=== PATIENT | female | born 1990 | race American Indian/Alaskan Native ===

== ENCOUNTER 2018-11-04 15:11 | Emergency (ER) | payer MEDICAID, OTHER ==
[2018-11-04 15:20] VITALS: BP 125/82
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
--- NOTE | 2018-11-04 16:05 | CR ---
Clinical history: 28-year-old female injured fall Interpretation: 3 views left knee (AP lateral and sunrise) unremarkable. Symmetric normal knee joint spacing. No sign of left knee joint effusion, fracture, dislocation or radiopaque loose joint body. Subtle chondromalacia patella.
--- NOTE | 2018-11-04 16:06 | CR ---
Clinical history: 28-year-old female injured right forearm (fall). Interpretation: 2 views confirm homogeneous normal bone density for age and gender. No sign of long bone fracture right radius or ulna. No dislocation of the right elbow or wrist joints. No foreign bodies.
--- NOTE | 2018-11-04 16:07 | CR ---
Clinical history: 28-year-old female injured right wrist (fall). Interpretation: Negative exam. Homogeneous normal bone density. No fracture or dislocation right wrist or hand. No foreign bodies.
== END 2018-11-04 16:18 | disposition home or self-care (01) ==
LOC: DL.ED 15:11
DX: S60.221A Contusion of right hand, initial encounter (principal); S80.02XA Contusion of left knee, initial encounter; W18.39XA Other fall on same level, initial encounter
CPT/HCPCS: 73090-RT; 73130-RT; 73562-LT; 99283-25

== ENCOUNTER 2021-06-23 11:10 | Emergency (ER) | payer MEDICAID ==
[2021-06-23 11:25] VITALS: BP 137/101; PULSE 82
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
[2021-06-23 12:12] LABS: ANION GAP 16.4 mEq/L (7-13); CHLORIDE,CL 102 mmol/L (98-107); SODIUM,NA 142 mmol/L (136-145)
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
== END 2021-06-23 13:30 | disposition home or self-care (01) ==
LOC: DL.ED 11:10
DX: S02.2XXA Fracture of nasal bones, initial encounter for closed fracture (principal); K04.7 Periapical abscess without sinus; E66.9 Obesity, unspecified; Z68.37 Body mass index [BMI] 37.0-37.9, adult; Z72.0 Tobacco use; W50.1XXA Accidental kick by another person, initial encounter
CPT/HCPCS: 36415; 70450; 70486; 80053; 84703; 85025; 99284-25

== ENCOUNTER 2022-01-25 13:12 | Emergency (ER) | payer MEDICAID ==
[2022-01-25 14:08] LABS: CORONAVIRUS COVID-19 NAA NEGATIVE (NEGATIVE); RESPIRATORY SYNCYTIAL VIR NAA NEGATIVE (NEGATIVE)
== END 2022-01-25 14:28 | disposition home or self-care (01) ==
LOC: DL.ED 13:12
DX: J20.8 Acute bronchitis due to other specified organisms (principal); H66.001 Acute suppurative otitis media without spontaneous rupture of ear drum, right ear; F17.210 Nicotine dependence, cigarettes, uncomplicated; E66.9 Obesity, unspecified; Z68.30 Body mass index [BMI] 30.0-30.9, adult; Z20.822 Contact with and (suspected) exposure to COVID-19
CPT/HCPCS: 0241U; 99282; 99283

== ENCOUNTER 2022-01-29 12:01 | Emergency (ER) | payer MEDICAID ==
[2022-01-29 12:28] VITALS: BP 126/79
[2022-01-29 13:13] LABS: ANION GAP 10.7 mEq/L (7-13); CHLORIDE,CL 104 mmol/L (98-107); SODIUM,NA 143 mmol/L (136-145)
[2022-01-29 13:15] LABS: ESTIMATED GFR 115 mL/min (>=60)
[2022-01-29 13:17] LABS: CORONAVIRUS COVID-19 NAA NEGATIVE (NEGATIVE); RESPIRATORY SYNCYTIAL VIR NAA NEGATIVE (NEGATIVE)
[2022-01-29] MEDS ORDERED: Benzonatate 100 MG Cap PO ONE (13:56)
[2022-01-29] MEDS ORDERED: Albuterol/Ipratropium 3.0-0.5 MG/3 ML Neb Soln NEB ONE (13:56)
[2022-01-29] MEDS ORDERED: Acetaminophen 500 MG Tab PO ONE (14:14)
[2022-01-29 14:24] VITALS: PULSE 80
== END 2022-01-29 15:19 | disposition home or self-care (01) ==
LOC: DL.ED 12:01
DX: J20.8 Acute bronchitis due to other specified organisms (principal); E66.9 Obesity, unspecified; Z68.32 Body mass index [BMI] 32.0-32.9, adult; Z20.822 Contact with and (suspected) exposure to COVID-19
CPT/HCPCS: 0241U; 36415; 71045; 80053; 83605; 83880; 84145; 84484; 85025; 85379; 86140; 93005; 93010; 99284; A9270-GY; J7620-GY

== ENCOUNTER 2022-02-02 17:21 | Emergency (ER) | payer MEDICAID ==
[2022-02-02 17:47] VITALS: BP 139/84; PULSE 122
[2022-02-02 18:59] LABS: CHLORIDE,CL 99 mmol/L (98-107); SODIUM,NA 136 mmol/L (136-145)
[2022-02-02 19:00] LABS: ESTIMATED GFR 118 mL/min (>=60)
[2022-02-02] MEDS ORDERED: cefTRIAXone 2 GM in Sodium Chloride 0.9% 100 ML IV ONE (22:54)
[2022-02-02] MEDS ORDERED: Azithromycin 500 MG in Sodium Chloride 0.9% 250 ML IV ONE (22:55)
== END 2022-02-02 19:05 | disposition left against medical advice (07) ==
LOC: DL.ED 17:21
DX: R10.31 Right lower quadrant pain (principal); R74.8 Abnormal levels of other serum enzymes; F17.210 Nicotine dependence, cigarettes, uncomplicated; E66.9 Obesity, unspecified; Z68.32 Body mass index [BMI] 32.0-32.9, adult; Z20.822 Contact with and (suspected) exposure to COVID-19
CPT/HCPCS: 36415; 80053; 80307; 81001; 81025; 82140; 82150; 82248; 83605; 83690; 83735; 84145; 85025; 86140; 99283; 99284; U0002

== ENCOUNTER 2022-12-03 05:59 | Emergency (ER) | payer MEDICAID ==
[2022-12-03] MEDS ORDERED: guaiFENesin/Dextromethorphan 100-10 MG/5 ML Soln 5 ML Cup PO ONE (06:08)
[2022-12-03] MEDS ORDERED: predniSONE 20 MG Tab PO ONE (06:08)
[2022-12-03] MEDS ORDERED: Albuterol/Ipratropium 3.0-0.5 MG/3 ML Neb Soln NEB ONE ×4 (06:08→08:05)
[2022-12-03 06:09] VITALS: BP 143/114
[2022-12-03] MEDS ORDERED: Benzonatate 100 MG Cap PO ONE (06:09)
[2022-12-03 06:55] VITALS: PULSE 112
[2022-12-03] MEDS ORDERED: Acetaminophen 500 MG Tab PO ONE (07:44)
== END 2022-12-03 09:09 | disposition home or self-care (01) ==
LOC: DL.ED 05:59
DX: J10.1 Influenza due to other identified influenza virus with other respiratory manifestations (principal); J20.8 Acute bronchitis due to other specified organisms; E66.9 Obesity, unspecified; Z68.31 Body mass index [BMI] 31.0-31.9, adult
CPT/HCPCS: 71046; 87804; 94640; 94667; 99284; A9270-GY; J7512; J7620-GY; U0002

== ENCOUNTER 2023-03-09 05:07 | Emergency (ER) | payer MEDICAID ==
[2023-03-09 05:34] VITALS: BP 122/91; PULSE 101
[2023-03-09] MEDS ORDERED: Sodium Chloride 0.9% 10 ML Syringe FLUSH PRN (05:44)
[2023-03-09 06:06] LABS: BASOPHILS PERCENT AUTO 0.3 % (0.0-1.0); EOSINOPHILS PERCENT AUTO 1.2 % (1.0-3.0); HEMATOCRIT 41.2 % (37.0-47.0); HEMOGLOBIN 13.2 g/dL (12.0-16.0); LYMPHOCYTES PERCENT AUTO 27.7 % (20.5-50.1); MEAN CORPUSCULAR HEMOGLOBIN 31.3 pg (27.0-34.0); MEAN CORPUSCULAR VOLUME 97.6 fL (80-100); NEUTROPHILS PERCENT AUTO 64.8 % (42.2-75.2); PLATELET COUNT,PLT 289 10^3/uL (150-450); RED BLOOD CELL COUNT 4.22 10^6/uL (4.2-5.4); WHITE BLOOD CELL COUNT,WBC 5.8 10^3/uL (5.0-10.0)
[2023-03-09 06:25] LABS: A/G RATIO 1.1; ALBUMIN 3.8 g/dL (3.4-5.0); ANION GAP 14.7 mEq/L (7-13); BILIRUBIN TOTAL 0.3 mg/dL (0.2-1.0); BUN/CREATININE RATIO 15.4 (No establ ref range); CALCIUM 8.4 mg/dL (8.5-10.1); CREATININE 0.65 mg/dL (0.55-1.02); EST CRCL DRUG DOSING (CG) 105.31 mL/min; POTASSIUM,K 3.7 mmol/L (3.5-5.1); PROTEIN TOTAL,TP 7.3 g/dL (6.4-8.2)
== END 2023-03-09 07:08 | disposition home or self-care (01) ==
LOC: DL.ED 05:07
DX: S02.2XXA Fracture of nasal bones, initial encounter for closed fracture (principal); F10.129 Alcohol abuse with intoxication, unspecified; I10 Essential (primary) hypertension; E66.9 Obesity, unspecified; F17.210 Nicotine dependence, cigarettes, uncomplicated; Z68.32 Body mass index [BMI] 32.0-32.9, adult; Y90.8 Blood alcohol level of 240 mg/100 ml or more; Y04.2XXA Assault by strike against or bumped into by another person, initial encounter
CPT/HCPCS: 36415; 70486; 80053; 80307; 85025; 99284

== ENCOUNTER 2023-05-18 18:16 | Emergency (ER) | payer SELFPAY | END 2023-05-18 19:45 | disposition left against medical advice (07) | LOC: DL.ED 18:16 | DX: Z53.21 Procedure and treatment not carried out due to patient leaving prior to being seen by health care provider (principal) ==

== ENCOUNTER 2023-09-03 06:17 | Emergency (ER) | payer MEDICAID ==
[2023-09-03 06:36] LABS: APPEARANCE,URINE SLIGHTLY CLOUDY (CLEAR); BILIRUBIN,URINE SMALL (NEGATIVE); COLOR,URINE YELLOW (YELLOW); GLUCOSE,URINE NEGATIVE (NEGATIVE); KETONES,URINE NEGATIVE (NEGATIVE); LEUKOCYTE ESTERASE,URINE NEGATIVE (NEGATIVE); NITRITE,URINE NEGATIVE (NEGATIVE); OCCULT BLOOD,URINE NEGATIVE (NEGATIVE); PH,URINE 7.5 (5.0-9.0); PROTEIN,URINE 100 (NEGATIVE)
[2023-09-03 06:46] LABS: AMORPHOUS SEDIMENT,URINE MANY /HPF (NOT SEEN); EPITHELIAL CELLS,URINE FEW /HPF (NOT SEEN); MUCUS,URINE MODERATE /LPF (NOT SEEN)
[2023-09-03 06:47] LABS: BACTERIA,URINE MODERATE /HPF (0-FEW/HPF); RBC,URINE 0-5 /HPF (0-5); WBC,URINE 0-5 /HPF (0-5/HPF)
[2023-09-03] MEDS: Sodium Chloride 0.9% 10 ML Syringe FLUSH PRN (06:47)
[2023-09-03 06:48] LABS: BASOPHILS PERCENT AUTO 0.4 % (0.0-1.0); EOSINOPHILS PERCENT AUTO 0.5 % (1.0-3.0); HEMATOCRIT 36.7 % (37.0-47.0); HEMOGLOBIN 11.5 g/dL (12.0-16.0); LYMPHOCYTES PERCENT AUTO 14.2 % (20.5-50.1); MEAN CORPUSCULAR HEMOGLOBIN 29.1 pg (27.0-34.0); MEAN CORPUSCULAR HGB CONC 31.3 g/dL (33.0-35.0); MEAN CORPUSCULAR VOLUME 92.9 fL (80-100); MONOCYTES PERCENT AUTO 10.7 % (2-8); NEUTROPHILS PERCENT AUTO 74.2 % (42.2-75.2); PLATELET COUNT,PLT 215 10^3/uL (150-450); RED BLOOD CELL COUNT 3.95 10^6/uL (4.2-5.4); WHITE BLOOD CELL COUNT,WBC 11.2 10^3/uL (5.0-10.0)
[2023-09-03] MEDS: Sodium Chloride 0.9% 1,000 ML IV ONE (06:48)
[2023-09-03 07:07] LABS: A/G RATIO 0.8; ALBUMIN 4.1 g/dL (3.4-5.0); ANION GAP 16.6 mEq/L (7-13); BILIRUBIN TOTAL 1.9 mg/dL (0.2-1.0); BUN/CREATININE RATIO 8.3 (No establ ref range); CALCIUM 9.4 mg/dL (8.5-10.1); CREATININE 0.84 mg/dL (0.55-1.02); EST CRCL DRUG DOSING (CG) 70.54 mL/min; MAGNESIUM 1.9 mg/dL (1.8-2.4); POTASSIUM,K 3.6 mmol/L (3.5-5.1)
[2023-09-03 07:10] LABS: LACTIC ACID 1.6 mmol/L (0.4-2.0)
[2023-09-03] MEDS: Famotidine 20 MG/2 ML SDV IVPUSH ONE (07:39)
[2023-09-03] MEDS: HYDROmorphone 0.5 MG/0.5 ML Syringe IVPUSH ONE (07:39)
[2023-09-03 07:44] LABS: BILIRUBIN DIRECT 0.7 mg/dL (0.0-0.2)
[2023-09-03 07:56] LABS: ETHANOL BLOOD MEDICAL < 3 mg/dL (0)
[2023-09-03] MEDS: Iopamidol 612 MG/ML 100 ML Bottle IVPUSH ONE (07:58)
[2023-09-03 08:12] LABS: INR 1.3 (0.9-1.2); PROTHROMBIN TIME 12.9 SEC (9.0-12.0)
[2023-09-03 08:38] VITALS: BP 142/102; PULSE 113
[2023-09-03] MEDS: HYDROmorphone 1 MG/ML Syringe IVPUSH ONE (08:53)
[2023-09-03] MEDS: Pantoprazole 40 MG Vial IVPUSH ONE (08:53)
[2023-09-03] MEDS: Ondansetron 4 MG/2 ML SDV IVPUSH ONE (09:48)
== END 2023-09-03 10:30 | disposition home or self-care (01) ==
LOC: DL.ED 06:17
DX: K52.9 Noninfective gastroenteritis and colitis, unspecified (principal); I10 Essential (primary) hypertension; F17.210 Nicotine dependence, cigarettes, uncomplicated
CPT/HCPCS: 36415; 74177; 76705; 80053; 80307; 81001; 81025; 82248; 83605; 83690; 83735; 85025; 85610; 96374; 96375; 96376; 99284; 99284-25; C9113; J1170; J2405; J3490; J7030; Q9967

== ENCOUNTER 2023-12-06 13:05 | Emergency (ER) | payer MEDICAID ==
[2023-12-06 16:22] VITALS: BP 143/88; PULSE 93
[2023-12-06] MEDS: Morphine 2 MG/ML SYRINGE IM ONE (22:25)
== END 2023-12-06 23:42 | disposition home or self-care (01) ==
LOC: DL.ED 13:05
DX: S63.502A Unspecified sprain of left wrist, initial encounter (principal); I10 Essential (primary) hypertension; F17.210 Nicotine dependence, cigarettes, uncomplicated; Z79.899 Other long term (current) drug therapy; W01.0XXA Fall on same level from slipping, tripping and stumbling without subsequent striking against object, initial encounter; Y92.009 Unspecified place in unspecified non-institutional (private) residence as the place of occurrence of the external cause; Y93.89 Activity, other specified
CPT/HCPCS: 29125; 73090-LT; 73120-LT; 96372; 99283; 99283-25; J2270

== ENCOUNTER 2025-04-14 17:06 | Emergency (ER) | payer MEDICAID ==
[2025-04-14] MEDS: Diphtheria,Pertussis(Acell),Tetanus Vaccine 0.5 ML Syringe IM ONE (17:30)
[2025-04-14 18:16] VITALS: BP 122/87; PULSE 70
== END 2025-04-14 18:25 | disposition home or self-care (01) ==
LOC: DL.ED 17:06
DX: S09.93XA Unspecified injury of face, initial encounter (principal); I10 Essential (primary) hypertension; Z79.899 Other long term (current) drug therapy; W54.1XXA Struck by dog, initial encounter
CPT/HCPCS: 73030-RT; 90471; 90715; 99282; 99283-25; A9270-GY